=== PATIENT | male | born 1995 | race Caucasian/White ===

== ENCOUNTER 2017-01-14 19:24 | Emergency (ER) | payer SELFPAY ==
--- NOTE | 2017-01-14 20:39 | RAD ---
INDICATION: Right ankle injury COMPARISON: None TECHNIQUE: AP, lateral, and oblique views were obtained. FINDINGS: There is no acute fracture or dislocation. There is lateral soft tissue swelling. IMPRESSION: SOFT TISSUE SWELLING. NO ACUTE FRACTURE.
--- NOTE | 2017-01-14 20:39 | RAD ---
INDICATION: Right foot injury COMPARISON: None TECHNIQUE: AP, lateral, and oblique views were obtained. FINDINGS: The bony structures, joint spaces, and soft tissues are normal for age. IMPRESSION: NEGATIVE EXAMINATION.
[2017-01-14 20:45] VITALS: BP 127/66
--- NOTE | 2017-01-14 20:51 | ED ---
Lower Extremity - HPI Summary HPI Summary: 21M presents with right ankle and foot pain for 6 days. He jumped off of a platform that was approximately 2 1/2 feet off the ground and twisted his right ankle. Hestates that he's been taking ibuprofen for the pain and using ice packs intermittently. He has been able to ambulate on it. He has ecchymosis noted to right hernandez and lateral ankle. Patient denies any previous injury to the ankle. Patient denies any numbness or tingling. - History of Current Complaint Chief Complaint: EDExtremityLower Stated Complaint: RIGHT ANKLE INJURY Time Seen by Provider: 01/14/17 19:59 Pain Intensity: 6 - Allergies/Home Medications Allergies/Adverse Reactions: Allergies Allergy/AdvReac Type Severity Reaction Status Date / Time No Known Allergies Allergy Verified 01/14/17 20:43 PMH/Surg Hx/FS Hx/Imm Hx Endocrine/Hematology History: Denies: Hx Anticoagulant Therapy Cardiovascular History: Denies: Hx Hypertension Infectious Disease History: No Infectious Disease History: Reports: Traveled Outside the [place] in Last 30 Days - [place] - Family History Known Family History: Negative: Cardiac Disease - Social History Alcohol Use: Occasionally Substance Use Type: Reports: None Smoking Status (MU): Never Smoked Tobacco Review of Systems Negative: Fever Negative: Chest Pain Negative: Shortness Of Breath Positive: Myalgia - right ankle and foot pain All Other Systems Reviewed And Are Negative: Yes Physical Exam Triage Information Reviewed: Yes Vital Signs On Initial Exam: Initial Vitals Temp Pulse Resp BP Pulse Ox 97.9 F 70 16 148/81 100 01/14/17 19:38 01/14/17 19:38 01/14/17 19:38 01/14/17 19:38 01/14/17 19:38 Vital Signs Reviewed: Yes Appearance: Positive: Well-Appearing Skin: Positive: Other - ecchymosis noted on anteroir lower hernandez, lateral aspect of right ankle and tops of toes Head/Face: Positive: Normal Head/Face Inspection Eyes: Positive: Normal, Conjunctiva Clear Respiratory/Lung Sounds: Positive: Clear to Auscultation, Breath Sounds Present Cardiovascular: Positive: Normal, RRR Musculoskeletal: Positive: Strength/ROM Intact - of right ankle with pain, Edema Right - ankle mild, Other - good pulses, capillary refill < 2 secs, tender to lateral malleolus of right ankle Diagnostics - Vital Signs Vital Signs Temp Pulse Resp BP Pulse Ox 01/14/17 20:42 98.5 F 70 16 127/66 99 01/14/17 19:38 97.9 F 70 16 148/81 100 - Laboratory Lab Statement: Any lab studies that have been ordered have been reviewed, and results considered in the medical decision making process. - Radiology ankle Xray Interpretation: No Acute Changes - IMPRESSION: SOFT TISSUE SWELLING. NO ACUTE FRACTURE. Radiology Interpretation Completed By: Radiologist foot Xray Interpretation: No Acute Changes - IMPRESSION: NEGATIVE EXAMINATION. Radiology Interpretation Completed By: Radiologist Lower Extremity Course/Dx - Course Course Of Treatment: 21M presents with right ankle pain s/p twisting the ankle 6 days ago. has been able to ambulate. denies any numbness or tingling. has full ROM with pain. ecchymosis noted of right ankle. xray normal. will treat as sprain. placed SHILPA wrap on ankle. patient declined crutches. patient understands and agrees with plan - Diagnoses Differential Diagnosis/HQI/PQRI: Positive: Fracture (Closed), Sprain, Strain Provider Diagnoses: Right ankle injury, Injury of right leg Discharge - Discharge Plan Condition: Good Disposition: HOME Patient Education Materials: Ankle Sprain (ED) Referrals: [facility] DIA Mccloud [Primary Care Provider] - Additional Instructions: Take ibuprofen every 6 hours as needed for pain and swelling Apply ice, rest, elevate Follow up with primary care physician within 5 days if no improvement Return to ED if develop numbness, tingling, inability to move joint, or any new or worsening symptoms
== END 2017-01-14 21:21 | disposition home or self-care (01) ==
LOC: ED 19:24
DX: S99.911A Unspecified injury of right ankle, initial encounter (principal); S89.91XA Unspecified injury of right lower leg, initial encounter; M79.671 Pain in right foot; X50.0XXA Overexertion from strenuous movement or load, initial encounter; Y93.9 Activity, unspecified; Y92.9 Unspecified place or not applicable
CPT/HCPCS: 99282